=== PATIENT | female | born 1965 | race Hispanic/Latino ===

== ENCOUNTER 2024-10-16 09:48 | Emergency (ER) | payer SELFPAY ==
[2024-10-16] MEDS ORDERED: methocarbamoL 500 MG TAB ONE (10:43)
[2024-10-16] MEDS ORDERED: KETOROLAC 30 MG/ML INJ ONE (10:43)
[2024-10-16] MEDS ORDERED: ACETAMINOPHEN 500 MG TAB ONE (10:43)
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
[2024-10-16 12:08] VITALS: BP 144/82; O2SAT 100
== END 2024-10-16 12:04 | disposition home or self-care (01) ==
LOC: ER 09:48
DX: S20.211A Contusion of right front wall of thorax, initial encounter (principal); V43.62XA Car passenger injured in collision with other type car in traffic accident, initial encounter; Y93.89 Activity, other specified; Y92.410 Unspecified street and highway as the place of occurrence of the external cause
CPT/HCPCS: 71045; 96372; 99284